=== PATIENT | male | born 1995 | race Caucasian/White ===

== ENCOUNTER 2020-03-11 11:56 | Emergency (ER) | payer MEDICAID ==
[~2020-03-11] VITALS: Ht 177.8 cm; Wt 110.0 kg
[~2020-03-11 11:56] MED LIST: ACET-3068 PO; IBUP-1984 PO; NO HOME MEDS
[2020-03-11 12:22] VITALS: BP 131/81
[2020-03-11] MEDS ORDERED: ACET-3067 PO (13:51)
== END 2020-03-11 14:01 | disposition home or self-care (01) ==
LOC: ER 11:57
DX: S62.306A Unspecified fracture of fifth metacarpal bone, right hand, initial encounter for closed fracture (principal); S62.304A Unspecified fracture of fourth metacarpal bone, right hand, initial encounter for closed fracture; Z86.69 Personal history of other diseases of the nervous system and sense organs; Z79.899 Other long term (current) drug therapy; W22.8XXA Striking against or struck by other objects, initial encounter; Y93.89 Activity, other specified; Y92.89 Other specified places as the place of occurrence of the external cause; Y99.8 Other external cause status
CPT/HCPCS: 29125; 73110; 73130; 99284